=== PATIENT | female | born 1945 | race Caucasian/White ===

== ENCOUNTER 2020-02-19 07:15 | Day surgery (SDC) | payer MEDICARE, OTHER ==
[~2020-02-19] VITALS: Ht 160 cm; Wt 58.6 kg
[~2020-02-19 07:15] MED LIST: ACET325 PO; ADULT ASPIRIN R81 MG PO; ALBU90OI INH; CLON.5 PO; Co Q-1010 MG PO; ESCI10 PO; FLUSAL1005 INH; FLUT1DIS5 INH; GUAIFEN-CODEINE10 ML PO; HYDR1TAB94 PO; Hair, Skin & N1 EACH PO; IBUP600 PO; KRILL OIL500 MG PO; LEVO750 PO; MIRT15ST MM; MUCUS ER600 MG PO; Multivitamin1 EAC1 PO; NAPR250 PO; Nystop60 GM TP; ONDA4ODT MM; RANI150 PO; TIOT18 INH; TIOT18 PO; TOCO1000 PO; TRAZ100 PO; TRAZ50 PO; Tessalon200 MG PO; hydroeye PO
[2020-02-19] MEDS ORDERED: METTREX2.5 (07:54)
[2020-02-19] MEDS ORDERED: FOLI1 (07:55)
== END 2020-02-19 09:41 | disposition home or self-care (01) ==
LOC: ORSCSDS 07:15
PROVIDERS: Internal Medicine Gastroenterology
PROC: 0DB98ZX Excision of Duodenum, Via Natural or Artificial Opening Endoscopic, Diagnostic (ICD-10-PCS; principal; 2020-02-19 08:30)
PROC: 0DBN8ZX Excision of Sigmoid Colon, Via Natural or Artificial Opening Endoscopic, Diagnostic (ICD-10-PCS; principal; 2020-02-19 08:30)
DX: R10.11 Right upper quadrant pain (principal); Z12.11 Encounter for screening for malignant neoplasm of colon; Z86.010 Personal history of colon polyps; D12.5 Benign neoplasm of sigmoid colon; K22.2 Esophageal obstruction; K64.8 Other hemorrhoids; K57.30 Diverticulosis of large intestine without perforation or abscess without bleeding; K44.9 Diaphragmatic hernia without obstruction or gangrene; K29.70 Gastritis, unspecified, without bleeding; J44.9 Chronic obstructive pulmonary disease, unspecified; K21.9 Gastro-esophageal reflux disease without esophagitis; E78.5 Hyperlipidemia, unspecified; F32.9 Major depressive disorder, single episode, unspecified; Z87.891 Personal history of nicotine dependence; Z99.81 Dependence on supplemental oxygen; Z79.82 Long term (current) use of aspirin; Z79.899 Other long term (current) drug therapy
CPT/HCPCS: 88305; 88342; J0330; J0461; J2405; J2704; J7120

== ENCOUNTER 2020-09-22 21:23 | Inpatient (IN) | payer MEDICARE, OTHER ==
[~2020-09-22] VITALS: Ht 160 cm; Wt 62.4 kg
[~2020-09-22 21:23] MED LIST changes: -ADULT ASPIRIN R81 MG PO; +ASPIR 8181 M1 PO; +FOLI1 PO; +METTREX2.5 PO
[2020-09-22 22:22] LABS: BASOPHILS ABSOLUTE AUTO 0.01 K/mm3 (0.00-0.23); BASOPHILS PERCENT AUTO 0 % (0-2); EOSINOPHILS ABSOLUTE AUTO 0.05 K/mm3 (0.00-0.68); EOSINOPHILS PERCENT AUTO 1 % (0-6); Hematocrit 40.2 % (33.0-51.0); Hemoglobin 13.2 g/dL (11.5-16.0); IMMATURE GRAN ABSOLUTE AUTO 0.03 K/mm3 (0.00-0.10); IMMATURE GRAN PERCENT AUTO 1 % (0-1); LYMPHOCYTES ABSOLUTE AUTO 0.87 K/mm3 (0.84-5.20); LYMPHOCYTES PERCENT AUTO 19 % (21-46); MONOCYTES ABSOLUTE AUTO 0.53 K/mm3 (0.16-1.47); MONOCYTES PERCENT AUTO 12 % (4-13); Mean Corpuscular HGB 29.8 pg (26.0-34.0); Mean Corpuscular HGB Conc 32.8 g/dL (31.5-36.5); Mean Corpuscular Volume 91 fL (80-100); Mean Platelet Volume 8.8 fL (9.1-12.4); NEUTROPHILS ABSOLUTE AUTO 3.01 K/mm3 (1.96-9.15); NEUTROPHILS PERCENT AUTO 67 % (41-73); Platelet Count 219 K/mm3 (150-400); RDW Coefficient Variation 13.8 % (11.7-14.2); RDW Standard Deviation 46.2 fL (35.1-46.3); Red Blood Cell Count 4.43 M/mm3 (3.80-5.20)
[2020-09-22 22:44] LABS: Alanine Aminotransfer (ALT/SGP 31 U/L (12-78); Albumin, Blood 2.9 g/dL (3.4-5.0); Albumin/Globulin Ratio 0.9 (0.8-1.8); Alk Phos 104 U/L (50-136); Anion Gap 7 mmol/L (6-16); Aspartate Aminotrans (AST/SGOT 34 U/L (12-37); Bilirubin, Total 0.3 mg/dL (0.1-1.0); Blood Urea Nitrogen 23 mg/dL (8-24); CO2, Blood 29 mmol/L (21-32); Calcium, Blood 8.1 mg/dL (8.5-10.1); Chloride, Blood 101 mmol/L (98-108); Creatinine, Blood 0.88 mg/dL (0.40-1.00); Globulin, Blood 3.4 g/dL (2.2-4.0); Glomerular Filtration Rate >60 (60-); Glucose, Blood 100 mg/dL (70-99); Potassium, Blood 3.5 mmol/L (3.5-5.5); Sodium, Blood 137 mmol/L (136-145); Total Protein, Blood 6.3 g/dL (6.4-8.2); Troponin I <0.015 ng/mL (0.000-0.040)
[2020-09-22 23:00] LABS: Influenza A, PCR NEGATIVE (NEGATIVE); Influenza B, PCR NEGATIVE (NEGATIVE); Resp Syncytial Virus, PCR NEGATIVE (NEGATIVE)
[2020-09-22 23:03] LABS: SARS-Cov-2 (COVID-19) PCR, MMC POSITIVE (NEGATIVE)
[2020-09-23] MEDS ORDERED: NIACIN ER1000 MG PO (03:35)
[2020-09-23 04:42] LABS: BASOPHILS ABSOLUTE AUTO 0.01 K/mm3 (0.00-0.23); BASOPHILS PERCENT AUTO 0 % (0-2); EOSINOPHILS ABSOLUTE AUTO 0.01 K/mm3 (0.00-0.68); EOSINOPHILS PERCENT AUTO 0 % (0-6); Hematocrit 37.3 % (33.0-51.0); Hemoglobin 12.2 g/dL (11.5-16.0); IMMATURE GRAN ABSOLUTE AUTO 0.02 K/mm3 (0.00-0.10); IMMATURE GRAN PERCENT AUTO 1 % (0-1); LYMPHOCYTES ABSOLUTE AUTO 0.69 K/mm3 (0.84-5.20); LYMPHOCYTES PERCENT AUTO 16 % (21-46); MONOCYTES ABSOLUTE AUTO 0.26 K/mm3 (0.16-1.47); MONOCYTES PERCENT AUTO 6 % (4-13); Mean Corpuscular HGB 29.7 pg (26.0-34.0); Mean Corpuscular HGB Conc 32.7 g/dL (31.5-36.5); Mean Corpuscular Volume 91 fL (80-100); NEUTROPHILS ABSOLUTE AUTO 3.25 K/mm3 (1.96-9.15); NEUTROPHILS PERCENT AUTO 77 % (41-73); Platelet Count 217 K/mm3 (150-400); RDW Coefficient Variation 13.7 % (11.7-14.2); RDW Standard Deviation 45.1 fL (35.1-46.3); Red Blood Cell Count 4.11 M/mm3 (3.80-5.20); White Blood Cell Count 4.24 K/mm3 (4.00-11.30)
--- NOTE | 2020-09-23 04:46 | NUR ---
SHIFT SUMMARY RECIEVED REPORT FROM MERLIN TODD. PATIENT ARRIVED TO ROOM VIA STRETCHER @0308 AND WAS A SBA TO THE BED. PATIENT IS ALERT, ORIENTED, AND COOPERATIVE WITH CARE. ORIENTED PATIENT TO ROOM. PATIENT IS CURRENTLY NPO. PATIENT STATES SHE IS ON 3L 02 VIA NC AT BASELINE AND SATS AROUND 90%. PATIENT IS CURRENTLY 4L 02 VIA NC, 02 SATS 93%. BLOOD PRESSURE 93/50, FLUIDS RUNNING. CALL LIGHT IN REACH.
[2020-09-23 04:59] LABS: Alanine Aminotransfer (ALT/SGP 28 U/L (12-78); Albumin, Blood 2.7 g/dL (3.4-5.0); Albumin/Globulin Ratio 0.9 (0.8-1.8); Alk Phos 97 U/L (50-136); Anion Gap 7 mmol/L (6-16); Aspartate Aminotrans (AST/SGOT 31 U/L (12-37); Bilirubin, Total 0.4 mg/dL (0.1-1.0); Blood Urea Nitrogen 20 mg/dL (8-24); Bun/Creatinine Ratio 28.7 (12.0-20.0); CO2, Blood 27 mmol/L (21-32); Calcium, Blood 7.7 mg/dL (8.5-10.1); Chloride, Blood 104 mmol/L (98-108); Globulin, Blood 3.1 g/dL (2.2-4.0); Glomerular Filtration Rate >60 (60-); Glucose, Blood 114 mg/dL (70-99); Potassium, Blood 4.3 mmol/L (3.5-5.5); Sodium, Blood 138 mmol/L (136-145); Total Protein, Blood 5.8 g/dL (6.4-8.2)
--- NOTE | 2020-09-23 18:08 | NUR ---
SHIFT SUMMARY PT A&Ox4; CALM AND COOPERATIVE WITH CARE. PT RESTING IN BED, UP TO CHAIR WITH 1 PERSON ASSIST. PT SOB WITH ACTIVITY ON 3.5L O2 VIA NC T/O SHIFT. PT DENIES PAIN, SOB, NAUSEA AND DIZZINESS. VSS. ENCOURAGED PT TO PRONE, DEEP BREATHING AND COUGH AND GET UP IN CHAIR. PT NEED ENCOURAGEMENT TO GET UP AND MOVE. NO OTHER ACUTE CHANGES NOTED WILL CONTINUE TO MONITOR UNTIL REPORT GIVEN TO ONCOMING RN.
--- NOTE | 2020-09-24 04:14 | NUR ---
SHIFT SUMMARY PATIENT IS ALERT, ORIENTED X4, AND COOPERATIVE WITH CARE. PATIENT INDEPENDENT WITH REPOSITIONING IN BED AND A 1 PERSON ASSIST TO THE BATHROOM. PATIENT STATES SHE FEELS REALLY WEAK. PATIENT TEACHING PROVIDED ON PRONE POSITIONING, PATIENT PRONING PERIODICALLY THROUGHOUT THE NIGHT. PATIENT STATED SHE FELT NAUSEOUS, MEDICATED, SEE EMAR. 02 SATS 90-95% ON 3L VIA NC. VSS, NO ACUTE CHANGES. CALL LIGHT IN REACH.
--- NOTE | 2020-09-25 05:58 | NUR ---
SHIFT SUMMARY PATIENT IS ALERT, ORIENTED AND COOPERATIVE WITH CARE. SBA TO THE BATHROOM, ENCOURAGING PATIENT TO PRONE AND STAY ACTIVE. PATIENT SLEPT MOST THE NIGHT. 02 SATS >93% ON 3L VIA NC. BLOOD PRESSURES 99/46, CALLED AND ORDERS TO CONTINUE MONITORING, LAST BP @521 WAS 120/52. PATIENTS HR SB 40s-50s WHILE SLEEPING. NO ACUTE CHANGES. CALL LIGHT IN REACH.
[2020-09-25 06:03] LABS: Hematocrit 40.3 % (33.0-51.0); Hemoglobin 13.2 g/dL (11.5-16.0); Mean Corpuscular HGB 29.3 pg (26.0-34.0); Mean Corpuscular HGB Conc 32.8 g/dL (31.5-36.5); Mean Corpuscular Volume 90 fL (80-100); Mean Platelet Volume 8.9 fL (9.1-12.4); Platelet Count 382 K/mm3 (150-400); RDW Coefficient Variation 13.9 % (11.7-14.2); White Blood Cell Count 12.33 K/mm3 (4.00-11.30)
[2020-09-25 06:36] LABS: Anion Gap 5 mmol/L (6-16); Blood Urea Nitrogen 30 mg/dL (8-24); Bun/Creatinine Ratio 34.8 (12.0-20.0); CO2, Blood 28 mmol/L (21-32); Calcium, Blood 8.5 mg/dL (8.5-10.1); Chloride, Blood 107 mmol/L (98-108); Creatinine, Blood 0.86 mg/dL (0.40-1.00); Glomerular Filtration Rate >60 (60-); Glucose, Blood 140 mg/dL (70-99); Potassium, Blood 4.3 mmol/L (3.5-5.5); Sodium, Blood 140 mmol/L (136-145)
[2020-09-25 07:56] LABS: C-REACTIVE PROTEIN, EXT RANGE 1.66 mg/dL (0.000-0.300); Magnesium, Blood 2.1 mg/dL (1.6-2.4)
--- NOTE | 2020-09-25 08:30 | NUR ---
pt laying in bed with covers pulled up around her, she feels cold. face is flushed, a/ox3, cooperative with care, follows commands well, denies pain, lungs are clear in upper tellez, dim in bases, resp even and unlabored, no cough noted or reported, hrr, tele in place running sb in the 50's, b/p in the 90's, afebrile, iv site is clear and patent, btx4, abd flat soft nontender, voids with out diff, skin c/w/d, maew, tyrese, call light in reach, took po meds without diff.
--- NOTE | 2020-09-25 17:54 | NUR ---
PT LOOKS A BIT BETTER THIS EVENING. SHE ISN'T SO FLUSHED AND NOT TREMBLING ANY MORE. STATES SHE FEELS BETTER, AND IS MORE TALKATIVE, NO FURTHER CHANGES THIS SHIFT. CALL LIGHT IN REACH.
--- NOTE | 2020-09-26 04:49 | NUR ---
SHIFT SUMMARY ASSUMED CARE OF PT AT 0030. PT IS A/OX4. PT WAS VERY TIRED AND WENT STRAIGHT TO SLEEP. TELE CALLED ONCE STATING THAT PT HR WENT DOWN TO 44. PT WAS STABLE. NO ACUTE EVENTS DURING THE NIGHT. PT SLEPT T/O THE NIGHT. CALL LIGHT IN REACH, BED IN LOWEST POSTION.
--- NOTE | 2020-09-26 17:08 | NUR ---
SHIFT SUMMARY- PT IS A/O, PLESANT AND COOPERATIVE. SHE IS EATING AND DRINKING WELL. SHE SLEPT INTERMITENTLY THROUGHOUT THIS SHIFT. SHE IS AMBULATING TO THE RESTROOM. HER BED IS IN THE LOW POSITION AND CALL LIGHT IS WITHIN REACH.
--- NOTE | 2020-09-27 05:24 | NUR ---
SHIFT SUMMARY ASSUMED CARE OF PT AT 1900. PT IS A/OX4. HEART SOUNDS REGULAR, TELE SHOWS SINUS @ 86. LUNG SOUNDS DIMINISHED, PT ON 3L NC AT BASELINE. PT IS INDEPENDENT TO BATHROOM. PT HAD NO NEW COMPLAINTS. CALL LIGHT IN REACH, BED IN LOWEST POSTION.
[2020-09-27] MEDS ORDERED: DEXA6 PO (11:57)
--- NOTE | 2020-09-27 15:20 | NUR ---
PT DISCHARGED FROM THE UNIT. IV REMOVED. FOLLOW UP INSTRUCTIONS REVIEWED. MEDICTAION FAXED TO PHARMACY. PT LEFT VIA WHEEL CHAIR. TO DRIVE HOME
== END 2020-09-27 14:20 | disposition home or self-care (01) | DRG 177 ==
LOC: ER 21:23 → PCU 09-23 00:55 → MEDS 09-25 23:36
PROVIDERS: Emergency Medicine; Family Medicine; ADMIT Internal Medicine
PROC: XW043E5 Introduction of Remdesivir Anti-infective into Central Vein, Percutaneous Approach, New Technology Group 5 (ICD-10-PCS; principal; 2020-09-23)
PROC: 3E0433Z Introduction of Anti-inflammatory into Central Vein, Percutaneous Approach (ICD-10-PCS; 2020-09-23)
DX: U07.1 COVID-19 (principal); J12.82 Pneumonia due to coronavirus disease 2019; J96.21 Acute and chronic respiratory failure with hypoxia; E86.0 Dehydration; E87.6 Hypokalemia; F32.9 Major depressive disorder, single episode, unspecified; J44.9 Chronic obstructive pulmonary disease, unspecified; K21.9 Gastro-esophageal reflux disease without esophagitis; Z87.891 Personal history of nicotine dependence; R19.7 Diarrhea, unspecified
CPT/HCPCS: 0241U; 36415; 71045; 80048; 80053; 83605; 83735; 83880; 84145; 84484; 85025; 85027; 86140; 87040; 93005; 93010; 94640; 94760; 94762; 96365; 96372; 96375; 97110; 97161; 97530; 99285-25; A9270; J0456; J1100; J1650; J2405; J7030; J7050; J8610

== ENCOUNTER → 2021-05-03 | Outpatient (CLI) | payer MEDICARE, OTHER ==
[~2021-05-03] MED LIST changes: +DEXA6 PO; +NIACIN ER1000 MG PO
== END | disposition home or self-care (01) ==
LOC: LAB 14:49 → LAB SHORT 14:49
DX: D22.5 Melanocytic nevi of trunk (principal)
CPT/HCPCS: 88305

== ENCOUNTER 2022-10-13 09:25 | Inpatient (IN) | payer MEDICARE, OTHER ==
[~2022-10-13] VITALS: Ht 160 cm; Wt 59.5 kg
[2022-10-13 10:01] LABS: Base Excess Venous 5.5 mmol/L; Bicarbonate Venous 27.7 mmol/L (24.0-30.0); PCO2 Venous 54.9 mmHg (38-42); pH Blood Venous 7.36 (7.34-7.37)
[2022-10-13 10:12] LABS: BASOPHILS ABSOLUTE AUTO 0.04 K/mm3 (0.00-0.23); BASOPHILS PERCENT AUTO 1 % (0-2); EOSINOPHILS ABSOLUTE AUTO 0.61 K/mm3 (0.00-0.68); EOSINOPHILS PERCENT AUTO 8 % (0-6); Hematocrit 45.7 % (33.0-51.0); Hemoglobin 14.9 g/dL (11.5-16.0); IMMATURE GRAN ABSOLUTE AUTO 0.02 K/mm3 (0.00-0.10); IMMATURE GRAN PERCENT AUTO 0 % (0-1); LYMPHOCYTES ABSOLUTE AUTO 2.11 K/mm3 (0.84-5.20); LYMPHOCYTES PERCENT AUTO 27 % (21-46); MONOCYTES ABSOLUTE AUTO 0.54 K/mm3 (0.16-1.47); MONOCYTES PERCENT AUTO 7 % (4-13); Mean Corpuscular HGB 29.9 pg (26.0-34.0); Mean Corpuscular HGB Conc 32.6 g/dL (31.5-36.5); Mean Corpuscular Volume 92 fL (80-100); Mean Platelet Volume 8.5 fL (9.1-12.4); NEUTROPHILS ABSOLUTE AUTO 4.62 K/mm3 (1.96-9.15); NEUTROPHILS PERCENT AUTO 58 % (41-73); Platelet Count 232 K/mm3 (150-400); RDW Standard Deviation 40.5 fL (35.1-46.3); Red Blood Cell Count 4.98 M/mm3 (3.80-5.20); White Blood Cell Count 7.94 K/mm3 (4.00-11.30)
[2022-10-13 11:25] LABS: Calcium, Ionized (POC) 1.01 mmol/L (1.10-1.46); Chloride (POC) 112 mmol/L (98-108); Creatinine (POC) 0.4 mg/dL (0.6-1.0); Glucose (ISTAT POC) 128 mg/dL (70-99); Hemoglobin (POC) 11.9 g/dL (12.0-16.0); Potassium (POC) 3.1 mmol/L (3.5-5.5); Sodium (POC) 144 mmol/L (135-148); Total CO2 (POC) 22 mmol/L (21-32)
[2022-10-13 12:04] LABS: Albumin, Blood 3.7 g/dL (3.4-5.0); Albumin/Globulin Ratio 1.1 (0.8-1.8); Bilirubin, Total 0.3 mg/dL (0.1-1.0); Calcium, Blood 9.6 mg/dL (8.5-10.1); Creatinine, Blood 0.73 mg/dL (0.40-1.00); Globulin, Blood 3.4 g/dL (2.2-4.0); Potassium, Blood 4.2 mmol/L (3.5-5.5); Total Protein, Blood 7.1 g/dL (6.4-8.2)
--- NOTE | 2022-10-13 17:40 | NUR ---
SHIFT SUMMARY PATIENT IS A RECENT ADMIT TO MEDICAL FLOOR FROM ED FOR ACUTE CHRONIC RESPIRATORY FAILURE. PATIENT IS ON 4L NC. PATIENTS BASELINE IS 3L. PATIENT HAS REPORTED PAIN AND MEDICATED PER EMAR. PATIENT REPORTS SOB BUT STATES THIS IS HER BASELINE. PATIENT HAS NOT COMPLAINED OF NAUSEA AND VOMITTING. PATIENTS FAMILY HAS BEEN AT BEDSIDE SINCE BEING ADMITTED. BED IN LOCKED AND LOWEST POSITION. CALL LIGHT IN PLACE. WILL MONITOR UNTIL SHIFT CHANGE.
[2022-10-14 06:01] LABS: BASOPHILS ABSOLUTE AUTO 0.01 K/mm3 (0.00-0.23); BASOPHILS PERCENT AUTO 0 % (0-2); EOSINOPHILS PERCENT AUTO 0 % (0-6); Hematocrit 37.5 % (33.0-51.0); Hemoglobin 12.4 g/dL (11.5-16.0); IMMATURE GRAN ABSOLUTE AUTO 0.05 K/mm3 (0.00-0.10); IMMATURE GRAN PERCENT AUTO 1 % (0-1); LYMPHOCYTES ABSOLUTE AUTO 1.09 K/mm3 (0.84-5.20); LYMPHOCYTES PERCENT AUTO 13 % (21-46); MONOCYTES ABSOLUTE AUTO 0.21 K/mm3 (0.16-1.47); MONOCYTES PERCENT AUTO 2 % (4-13); Mean Corpuscular HGB 29.7 pg (26.0-34.0); Mean Corpuscular HGB Conc 33.1 g/dL (31.5-36.5); Mean Corpuscular Volume 90 fL (80-100); Mean Platelet Volume 8.8 fL (9.1-12.4); NEUTROPHILS ABSOLUTE AUTO 7.31 K/mm3 (1.96-9.15); NEUTROPHILS PERCENT AUTO 84 % (41-73); Platelet Count 231 K/mm3 (150-400); RDW Coefficient Variation 12.1 % (11.7-14.2); RDW Standard Deviation 39.7 fL (35.1-46.3); Red Blood Cell Count 4.18 M/mm3 (3.80-5.20); White Blood Cell Count 8.67 K/mm3 (4.00-11.30)
[2022-10-14 06:24] LABS: Bun/Creatinine Ratio 41.7 (12.0-20.0); Calcium, Blood 9.1 mg/dL (8.5-10.1); Creatinine, Blood 0.65 mg/dL (0.40-1.00); Potassium, Blood 3.9 mmol/L (3.5-5.5)
--- NOTE | 2022-10-14 06:46 | NUR ---
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 PLEASANT AND COOPERATIVE WITH CARE. CALLS APPROPRIATELY AND IS ABLE TO COMMUNICATE NEEDS EFFECTIVELY. C / O BACK PAIN AT BEGINNINGS OF SHIFT RESOLVED WITH 1x DOSE 1mg MORPHINE IV. IV LEFT WRIST TENDER AND PAINFUL; REMOVED AND NEW 20G PLACED LFA. CONTINUES WITH BREATHING Tx AND IV STEROIDS. MAINTAININ SPO2 >92% ON 4L/min VIA NC. NO ACUTE CONCERNS T/O THE NIGHT. LABS DRAWN THIS AM; NO CRITICAL VALUES RECEIVED AT THIS TIME. WILL REPORT TO ONCOMING RN.
--- NOTE | 2022-10-14 17:06 | NUR ---
SHIFT SUMMARY- PT IS ALERT AND ORIENTED X4. 4L NC. SOB WITH EXCERTION. INDEPENDENT IN THE ROOM. BED IS IN THE LOWEST POSITION WITH CALL LIGHT IN REACH. PT IS APPROPRIATE AND CALLS FOR NEEDS. PT HAS BEEN COMPAINING OF BACK PAIN AND HEADACHE THROUGHOUT THE DAY. TREATED PAIN PER EMAR.
--- NOTE | 2022-10-15 07:32 | NUR ---
[facility] SUMMARY: A&Ox4. PLEASANT AND COOPERATIVE WITH CARE. CALLS APPROPRIATELY AND IS ABLE TO COMMUNICATE NEEDS EFFECTIVELY. APAP 650MG ADMINISTERED LAST NIGHT FOR C / O HEADACHE. NO C / O BACK PAIN AND SLEPT REMAINDER OF SHIFT. EXP WHEEZE T/O LUNGS. BPs CONTINUE TO BE SOFT THOUGH PT ASYMPTOMATIC. CALL FROM MICRO; SPUTUM Cx COLLECTED YESTERDAY CONTAMINATED AND WILL NEED TO BE RECOLLECTED. NO OTHER ACUTE EVENTS T/O THE NIGHT. WILL REPORT TO ONCOMING RN.
--- NOTE | 2022-10-15 17:52 | NUR ---
PT QUITE PLEASANT TODAY. CONTINUES WITH EXPIRATORY WHEEZES T/O. CONTINUES ON 3L O2. HAS BEEN VERY ANX THIS AM. MUCH IMPROVED WITH NEW MEDICATIONS ON BOARD. PT STATES MUCH IMPROVED WITH ANXIETY AND BREATHING. VSS. NO NEW CONCERNS NOTED. BED IN LOW POSITION, CALL LITE IN REACH, CALLS APPROP
--- NOTE | 2022-10-16 05:43 | NUR ---
PT C/O HEADACHE PRIOR TO MED PASS, ULTRAM GIVEN WITH GOOD RESULTS. PT SLEPT PEACEFULLY DURING SHIFT, IDEPENDENT IN ROOM.
--- NOTE | 2022-10-16 17:26 | NUR ---
PT QUITE PLEASANT TODAY. DID NOT SEE TODAY. SHE UNDERSTOOD DR FEELS SHE MIGHT BE ABLE TO GO HOME TOMORROW. PT AGREES MAY BE OKAY. NO NEW CONCERNS. LUNGS EXPIRATORY WHEEZES T/O. STILL SOB WITH EXERTION. MUCH LESS ANX AND SHAKINESS. BED IN LOW POSITION, CALL LITE IN REACH, CALLLS APPROP
--- NOTE | 2022-10-17 07:22 | NUR ---
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 PLEASANT AND COOPERATIVE WITH CARE. CALLS APPROPRIATELY AND IS ABLE TO COMMUNICATE NEEDS EFFECTIVELY. NO ACUTE CONCERNS T/O THE NIGHT. REPORT TO ONCOMING RN.
[2022-10-17] MEDS ORDERED: PRED20 PO (11:58)
--- NOTE | 2022-10-17 16:33 | NUR ---
DISCHARGE. A&OX4, COOPERATIVE WITH CARE. NO ACUTE EVENTS THIS SHIFT. PT LEFT ON 3L O2 VIA NC AT BASELINE. LUNGS CONGESTED WITH A OCCASIONALLY PRODUCTIVE COUGH. NO ACUTE EVENTS DURING THIS SHIFT. PT STATES SHE FEELS WEAK BUT CONFIDENT IN AMBULATING AT HOME. REVIEWED DISCHARGE INFORMATION. PT DENIED QUESTIONS OR CONCERNS. DISCHARGED WITH PLANS FOR HOME HEALTH AT 1445.
== END 2022-10-17 14:59 | disposition home health service (06) | DRG 189 ==
LOC: ER 09:25 → MEDS 13:35
PROVIDERS: Emergency Medicine; Internal Medicine Endocrinology, Diabetes & Metabolism; ADMIT Family Medicine
DX: J96.21 Acute and chronic respiratory failure with hypoxia (principal); J44.1 Chronic obstructive pulmonary disease with (acute) exacerbation; J96.22 Acute and chronic respiratory failure with hypercapnia; F41.9 Anxiety disorder, unspecified; K21.9 Gastro-esophageal reflux disease without esophagitis; F32.A Depression, unspecified; Z90.13 Acquired absence of bilateral breasts and nipples; Z90.710 Acquired absence of both cervix and uterus; Z90.49 Acquired absence of other specified parts of digestive tract; Z87.891 Personal history of nicotine dependence; Z99.81 Dependence on supplemental oxygen; Z88.8 Allergy status to other drugs, medicaments and biological substances; Z79.899 Other long term (current) drug therapy; Z79.51 Long term (current) use of inhaled steroids; Z79.52 Long term (current) use of systemic steroids; Z79.82 Long term (current) use of aspirin; Z79.2 Long term (current) use of antibiotics; Z98.890 Other specified postprocedural states
CPT/HCPCS: 36415; 71045; 80047; 80048; 80053; 82803; 83880; 84484; 85014; 85025; 87070; 87205; 93005; 93010; 94640; 94644; 94664; 94760; 96374; 97116; 97161; 97530; 99285-25; A9270; J1650; J2270; J2930; J7512